=== PATIENT | female | born 1945 | race Caucasian/White ===

== ENCOUNTER → 2018-05-16 | Day surgery (SDC) | payer BC ==
--- NOTE | 2018-05-17 16:23 | PATH ---
Cytology Non-Gynecological Report Patient Name: SANDY DOWNING [facility]. Rec. #: [id number] /Age/Gender: 1945 (Age: 73) / F Account: [id number] Location: RADIOLOGY INTER Taken: 05/16/2018 Received: 05/16/2018 Reported: 05/17/2018 Physicians: Christine Nogueira M.D. Specimen(s) Received THYROID FNA Clinical History Mid thyroid nodule, 2.63 x 1.72 x 2.17 cm Final Diagnosis THYROID, MID, FINE NEEDLE ASPIRATION: SATISFACTORY FOR EVALUATION. B[place] CLASS II: BENIGN. CYTOLOGIC FINDINGS ARE CONSISTENT WITH A BENIGN FOLLICULAR NODULE WITH POST-HEMORRHAGIC CHANGE. SMALL FOLLICULAR CELLS IN A BACKGROUND OF COLLOID AND HEMOSIDERIN-LADEN MACROPHAGES. Electronically Signed Tiff Cornelius M.D. Gross Description Received are eight direct smears, four of which are air-dried and Diff-Quik stained, and four of which are alcohol fixed and Pap stained. Also received is 20 ml of bloody formalin from which one cellblock is prepared.
== END | disposition home or self-care (01) ==
LOC: JRADIR 09:28
PROVIDERS: ATTEND Internal Medicine Endocrinology, Diabetes & Metabolism
PROC: 0G9K3ZX Drainage of Thyroid Gland, Percutaneous Approach, Diagnostic (ICD-10-PCS; principal; 2018-05-16)
DX: E04.1 Nontoxic single thyroid nodule (principal)
CPT/HCPCS: 76942; 87899; 88173; 88305-TC